=== PATIENT | male | born 2005 | race Caucasian/White ===

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

== ENCOUNTER 2024-06-18 20:06 | Emergency (ER) | payer OTHER, SELFPAY ==
--- NOTE | 2024-06-18 20:12 | XRR_ITS ---
PROCEDURE INFORMATION: Exam: XR Abdomen Exam date and time: 06/18/2024 8:29 PM Age: 18 years old Clinical indication: Constipation; Additional info: Constipated TECHNIQUE: Imaging protocol: Radiologic exam of the abdomen. Views: Frontal supine view of the abdomen. 1 View. COMPARISON: CR XR chest 1V portable [id number] 06/01/2022 3:30 PM FINDINGS: Gastrointestinal tract: Above average fecal loading in the colon, suggestive of constipation. Bones/joints: Unremarkable. XR/XR KUB [id number] IMPRESSION: Above average fecal loading in the colon, suggestive of constipation.
[2024-06-18 20:15] VITALS: BP 130/98; PULSE 77; RESP 18; TEMP 36.8; O2SAT 97; BMI 28.5
[2024-06-18 20:17] VITALS: BP 114/68; PULSE 79; O2SAT 97
[2024-06-18 21:11] VITALS: BP 136/78; PULSE 90; O2SAT 93
--- NOTE | 2024-06-18 21:18 | W.ED.ABDPA2 ---
HPI - Abdominal Pain General: Chief Complaint: Abdominal Pain Stated Complaint: Constipated Time Seen by Provider: 06/18/24 20:33 Source: patient Mode of arrival: ambulatory Limitations: no limitations History of Present Illness: Patient is a 18-year-old male present to the emergency department complaining of constipation for 1 week. States he has had some loose stools but this takes a while being on the toilet, has not had a full normal bowel movement for a week. Has been taking MiraLAX without much relief. Also is noting some increasing abdominal pain. No other symptoms reported this time. He does note adequate water relief but states that he does not eat much fiber. MD elicited complaint: abdominal pain Pertinent past history: constipation Onset (ago): week(s) Pain Consistency: constant Associated Symptoms: Reports constipation; Denies bloating, change in stool character, chills, diarrhea, dysuria, fever(s), hematochezia, nausea and vomiting Related Data Home Medications Medication Instructions Recorded Confirmed acetaminophen 500 mg tablet 1,000 - 2,000 mg PO Q6H PRN Pain 06/01/22 06/01/22 Previous Rx's Medication Instructions Recorded diclofenac sodium 75 mg 75 mg PO Q12H PRN pain #20 tabs 06/01/22 tablet,delayed release Allergies Allergy/AdvReac Type Severity Reaction Status Date / Time Penicillins Allergy Unknown Verified 06/18/24 20:17 Review of Systems General: Reports: 10 or more systems reviewed and unremarkable except in HPI and below Const: Denies: fever(s), chills, change in appetite, change in weight or diaphoresis ENMT: Denies: throat pain or hoarseness Card: Denies: chest pain, palpitations or lightheadedness Resp: Denies: dyspnea, productive cough or wheezing GI: Reports: abdominal pain and constipation; Denies: nausea, vomiting, diarrhea, bloating, change in stool character or hematochezia : Denies: flank pain, difficulty urinating, dysuria, urinary frequency or urinary urgency Musc: Denies: neck pain or back pain Skin/Breast: Denies: rash or new lesions Neuro: Denies: headache(s) or dizziness PFSH ED PFSH: Medical History No pertinent past medical history Surgical History H/O toe surgery Social History Smoking and tobacco/nicotine status: current every day tobacco/nicotine user Alcohol intake: unknown Physical Exam Const: COMMON NORMALS: no acute distress, average body habitus, patient oriented x3, no limitations, healthy appearing, alert and well nourished GENERAL APPEARANCE: cooperative and comfortable ORIENTATION/CONSCIOUSNESS: Yes awake HENMT: COMMON NORMALS: normocephalic, atraumatic, hearing grossly normal bilaterally, external ears normal, Normal external nose present, Normal nasal mucous membranes and turbinates present and moist oral mucous membranes HEAD & SCALP: normocephalic and atraumatic NOSE: Normal external nose present and Normal nasal mucous membranes and turbinates present EXTERNAL EAR: Yes external ears normal Eye: COMMON NORMALS: Equal, round and reactive pupils present, EOMs intact bilaterally, conjunctivae normal and normal visual márquez by confrontation CONJUNCTIVA: Yes conjunctivae normal PUPIL: Yes Equal, round and reactive pupils present Neck/C-Spine: COMMON NORMALS: full ROM, supple, no meningeal signs and no JVD Resp: COMMON NORMALS: normal respiratory effort, No retractions, No use of accessory muscles and clear to auscultation bilaterally AUSCULTATION: clear to auscultation bilaterally, no crackles, no rales, no rhonchi and no wheezes Cardio: COMMON NORMALS: no JVD, regular rate, regular rhythm, S1 normal heart sound present, S2 normal heart sound present, No gallops present (Cardio), No clicks present (Cardio), No murmurs present (Cardio), No rub (Cardio) and Peripheral pulses 2+ throughout RATE: regular rate RHYTHM: regular rhythm HEART SOUNDS: S1 normal heart sound present and S2 normal heart sound present PERIPHERAL PULSES: Peripheral pulses 2+ throughout GI: COMMON NORMALS: Normal to inspection, nondistended, normoactive bowel sounds present, Soft to palpation, No hepatosplenomegaly present and no masses AUSCULTATION: Yes normoactive bowel sounds PALPATION: Yes Soft to palpation, Yes Tenderness to palpation present (GI) (Mild diffuse abdominal tenderness to palpation), No Guarding due to palpation present (GI), No Rigid due to palpation and Yes No hepatosplenomegaly present RECTAL EXAM: Yes deferred : COMMON NORMALS: Yes no CVA tenderness BLADDER/KIDNEY EXAM: Yes no CVA tenderness Back/Pelvis: COMMON NORMALS: no CVA tenderness Extremity: COMMON NORMALS: normal to inspection and full ROM Neuro: COMMON NORMALS: patient oriented x3, moves all extremities, no focal motor deficits and no sensory deficits noted SENSORIUM/ORIENTATION: Yes alert MENINGEAL SIGNS: Yes no meningeal signs Psych: COMMON NORMALS: mental status grossly normal, cooperative and speech normal SPEECH: Yes normal speech Skin: COMMON NORMALS: no rashes or lesions noted GENERAL SKIN EXAM: no rashes or lesions noted Course Vital Signs: Vital signs: Vital Signs Temperature 98.2 F 06/18/24 20:15 Pulse Rate 84 06/18/24 21:38 Respiratory Rate 18 06/18/24 20:15 Blood Pressure 132/66 06/18/24 21:38 Pulse Oximetry 96 06/18/24 21:38 Oxygen Delivery Me thod Room Air 06/18/24 21:11 MDM - Abdominal Pain Medical Decision Making Patient presents with complaints of constipation for a week that is also been associated with some worsening abdominal pain and encopresis. KUB did show signs of constipation, patient had only tried MiraLAX at this point. We will now try cocktail of mag citrate, mineral oil, and lactulose to take at home. Also encouraged to continue MiraLAX for maintenance and to increase his water and dietary fiber intake. Will return with any new or worsening Lab Data Labs/Radiology: Radiology Impressions KUB X-Ray 06/18/24 20:12 IMPRESSION: Above average fecal loading in the colon, suggestive of constipation. All radiology interpretation(s) finalized by discharge Discharge Plan Discharge Patient Disposition: Home Clinical Impression: Constipation Qualifiers: Constipation type: unspecified constipation type Qualified Code(s): K59.00 - Constipation, unspecified Condition: Stable Prescriptions: No Action Tylenol Ex Str Rapid Release 500 mg Tablet 1,000 - 2,000 mg PO Q6H PRN (Reason: Pain) diclofenac sodium 75 mg tablet,delayed release (DR/EC) 75 mg PO Q12H PRN (Reason: pain) Qty: 20 0RF Discharge Orders: Discharge ED (Routine); Ordered 06/18/24 Ordered By: Kvng Bello Discharge Diet: As Directed Discharge Activity: Increase activity as tolerated Patient Instructions: Constipation (ED) Activity Restrictions/Additional Instructions: Take constipation cocktail as prescribed at home. Continue taking MiraLAX as a maintenance therapy. Increase your fluid intake and increase your dietary fiber intake. Follow-up with primary care and return with any new or worsening symptoms. Coding Level of Care Code ED Rough Rice Tender for Katelynn Finley
[2024-06-18] MEDS: lactulose oral liq 20 gm/30 mL UDC 30 GM PO (21:32)
[2024-06-18] MEDS: mineral oil 30 mL UDC PO (21:32)
[2024-06-18] MEDS: magnesium citrate Btl 296 mL PO (21:33)
[2024-06-18 21:38] VITALS: BP 132/66; PULSE 84; O2SAT 96
== END 2024-06-18 21:40 | disposition home or self-care (01) ==
PROVIDERS: Emergency Provider Physician Assistant
DX: K59.00 Constipation, unspecified (principal); Z72.0 Tobacco use
CPT/HCPCS: 74018; 99283